=== PATIENT | female | born 1985 | race Caucasian/White ===

== ENCOUNTER 2017-09-15 07:02 | Emergency (ER) | payer OTHER ==
[~2017-09-15] VITALS: Ht 157.5 cm; Wt 65.9 kg
[2017-09-15 07:05] VITALS: TEMP 98.3
[2017-09-15] MEDS ORDERED: HUMIRA40 MG/0.1 (07:09)
[2017-09-15 07:32] LABS: COLLECTION METHOD CLEAN CATCH
[2017-09-15 07:37] LABS: BASO # 0.1 (0.0-0.2); BASO % 0.7 % (0.0-2.0); EOS # 0.4 (0.0-0.7); EOS % 5.4 % (0-4.0); GRAN # 3.4 (1.4-6.5); GRAN % 47.4 % (42.2-75.2); HEMATOCRIT 38.3 % (37.0-47.0); HEMOGLOBIN 12.9 g/dl (12.5-16.0); LYMPH # 2.7 (1.2-3.4); LYMPH % 37.7 % (20.0-51.0); MEAN CELL VOLUME 93 fl (80.0-100.0); MEAN CORPUSCULAR HEMOGLOBIN 31 pg (27.0-31.0); MEAN CORPUSCULAR HGB CONC 34 g/dl (33.0-37.0); MEAN PLATELET VOLUME 9.1 fl (7.4-10.4); MONO # 0.6 (0.1-0.6); MONO % 8.5 % (1.7-9.3); PLATELET COUNT 315 K/mm3 (130-400); RED BLOOD COUNT 4.12 M/mm3 (4.10-5.30); REDCELL DISTRIBUTION WIDTH-CV 12.9 % (11.5-14.5)
[2017-09-15 07:42] LABS: MUCOUS Present /lpf; PH 6 (5-8); URINE APPEARANCE Clear; URINE BACTERIA None Seen /hpf; URINE BILIRUBIN Negative (NEGATIVE); URINE BLOOD Negative (NEGATIVE); URINE COLOR Yellow; URINE GLUCOSE Negative (NEGATIVE); URINE KETONE Negative (NEGATIVE); URINE LEUKOCYTE ESTERASE Negative (NEGATIVE); URINE NITRATE Negative (NEGATIVE); URINE PROTEIN(semi-quant) Negative (NEGATIVE); URINE RBC 0-2 /hpf; URINE UROBILINOGEN Negative (NEGATIVE)
[2017-09-15 07:53] LABS: ALBUMIN 3.8 gm/dL (3.5-5.0); BILIRUBIN,TOTAL 0.3 mg/dL (0.0-1.0); CALCIUM 8.9 mg/dL (8.4-10.2); CREATININE, serum 0.6 mg/dL (0.52-1.25); POTASSIUM 3.7 mmol/L (3.4-5.0); TOTAL PROTEIN 6.7 gm/dL (6.4-8.2)
[2017-09-15 07:55] LABS: C-REACTIVE PROTEIN 0.5 mg/dL (0.0-0.9)
[2017-09-15] MEDS ORDERED: NORCO 325 MG-51 TAB PO (08:41)
[2017-09-15 09:17] VITALS: BP 114/73; PULSE 60
== END 2017-09-15 09:15 | disposition home or self-care (01) ==
LOC: COL.ER 07:02
PROVIDERS: Family Medicine
DX: N83.209 Unspecified ovarian cyst, unspecified side (principal); Z90.710 Acquired absence of both cervix and uterus; Z98.890 Other specified postprocedural states
CPT/HCPCS: J1170; J2405; J7030; Q9967

== ENCOUNTER 2018-03-05 09:28 | Emergency (ER) | payer OTHER ==
[~2018-03-05] VITALS: Ht 157.5 cm; Wt 65.9 kg
[~2018-03-05 09:28] MED LIST: HUMIRA40 MG/0.1; NORCO 325 MG-51 TAB PO
[2018-03-05 09:44] VITALS: TEMP 98.4
[2018-03-05] MEDS ORDERED: HUMIRA40 MG/0.8 SQ (10:48)
[2018-03-05] MEDS ORDERED: TESSALON P100 MG/CAP PO (10:49)
[2018-03-05] MEDS ORDERED: DOXYCYCLINE HY100 MG PO (10:49)
[2018-03-05] MEDS ORDERED: PROAIR HFA0.09 MG/AC IH (11:57)
[2018-03-05] MEDS ORDERED: MEDROL 4MG DOSPA4 MG PO (13:10)
[2018-03-05 13:35] VITALS: BP 108/76; PULSE 86
== END 2018-03-05 13:39 | disposition home or self-care (01) ==
LOC: COL.ER 09:28
DX: J40 Bronchitis, not specified as acute or chronic (principal); Z90.710 Acquired absence of both cervix and uterus
CPT/HCPCS: J1885; J2405; J2550; J7030

== ENCOUNTER 2020-12-21 09:53 | Day surgery (SDC) | payer OTHER ==
[~2020-12-21] VITALS: Ht 157.5 cm; Wt 79.7 kg
[~2020-12-21 09:53] MED LIST changes: +DOXYCYCLINE HY100 MG PO; +HUMIRA40 MG/0.8 SQ; +MEDROL 4MG DOSPA4 MG PO; +PROAIR HFA0.09 MG/AC IH; +TESSALON P100 MG/CAP PO
--- NOTE | 2020-12-21 10:00 | NUR ---
Patient ambualted back to bay #7 without assistive devices and a steady gait. Vitals obtained. Consent signed. Medication history reviewed. Patient states having nipple piercings and does not want to take them out. Patient was educated on the risk involved with cauterization if grounding pads were to fail, increased risk of piercing area being burned. Patient verbalized understanding and stated that "its fine. I understand and don't want to take them out." See physical assessment.
[2020-12-21] MEDS ORDERED: COSENTYX P150 MG/1 M SQ (10:23)
--- NOTE | 2020-12-21 10:45 | NUR ---
NAME AND REVIEWED WITH PATIENT, WHO VERBALIZED IT WAS CORRECT.
[2020-12-21 10:58] VITALS: BP 114/80; PULSE 82; TEMP 98.7
--- NOTE | 2020-12-21 11:40 | NUR ---
Patient was escorted to BR at this time and voided successfully. Back to bed, siderails x2 and call bright is within reach.
[2020-12-21 13:18] VITALS: BP 115/68; PULSE 81; TEMP 97.7
--- NOTE | 2020-12-21 13:18 | NUR ---
Patient arrives to [facility] [place] [facility] via cart. She is accompanied by BANDAR Hunter, DENNY Handley, and Dr. Harmon. Her is at the bedside. Dr. Harmon speaks with them regarding discharge instructions/post-op appointment. The patient is alert and oriented, she verbalizes understanding. Monitoring is applied -VSS and WNL on room air. PIV to TKO. She has a clean/dry/intact dressings on her right foot, along with a surgical walking boot placed by Dr. Harmon.
[2020-12-21] MEDS ORDERED: AMOXICILLIN 8751 TAB BC (13:28)
[2020-12-21 13:30] VITALS: BP 102/62; PULSE 57
--- NOTE | 2020-12-21 13:30 | NUR ---
Patient is alert and oriented. VSS on room air. Denies pain, nausea, or need. Eating/drinking. Tolerating PO well. She ambulates to the restroom with steady gait, standby assist of staff. She voids and returns to room.
[2020-12-21] MEDS ORDERED: TYLENOL W/COD1 UDTAB PO (13:31)
[2020-12-21 13:45] VITALS: BP 119/74; PULSE 61
--- NOTE | 2020-12-21 14:15 | NUR ---
Patient has met discharge criteria. Discharge instructions are discussed. She verbalizes understanding and denies any questions. PIV is removed with catheter intact and hemostasis achieved. She changes to her clothing with the help of her . She is discharged to the care of her . She is escorted via wheelchair to the third floor, as she is wanting to visit her mother who is an inpatient on the third floor. Her verbalizes that he will drive her home when they leave the hospital following their visit. The patient verbalizes that the visit will be short and she will elevate her foot while visiting.
== END 2020-12-21 14:15 | disposition home or self-care (01) ==
LOC: SDCO 09:53
DX: M67.471 Ganglion, right ankle and foot (principal); M06.9 Rheumatoid arthritis, unspecified; Z79.899 Other long term (current) drug therapy
CPT/HCPCS: J0690; J2704; J3010